=== PATIENT | female | born 1975 | race Asian ===

== ENCOUNTER 2024-07-16 05:24 | Observation (INO) | payer BC ==
[2024-07-09 12:20] LABS: BASOPHILS % 0.5 % (0.0-1.0); EOSINOPHILS # (AUTO) 0.1 (0.0-0.4); HEMATOCRIT 47.5 % (34.2-44.1); HEMOGLOBIN 15.4 g/dL (12.0-16.0); LYMPHOCYTES # (AUTO) 1.6 (1.0-3.2); LYMPHOCYTES % 28.5 % (18.0-39.1); MEAN CORPUSCULAR HEMOGLOBIN 29.6 pg (28-32); MEAN CORPUSCULAR HGB CONC 32.4 g/dL (31-35); MEAN CORPUSCULAR VOLUME 91.3 fL (81-99); MONOCYTES # (AUTO) 0.4 (0.2-0.8); MONOCYTES % 7.8 % (4.4-11.3); NEUTROPHILS # (AUTO) 3.4 (2.1-6.9); PLATELET COUNT 234 x10e3/uL (140-360); RED CELL DISTRIBUTION WIDTH 11.9 % (11.7-14.4); WHITE BLOOD COUNT 5.54 x10e3/uL (4.8-10.8)
[2024-07-09 12:42] LABS: ALBUMIN 4.3 g/dL (3.5-5.0); ALBUMIN/GLOBULIN RATIO 1.2 (0.8-2.0); ANION GAP 20.1 mmol/L (8-16); BILIRUBIN,TOTAL 0.7 mg/dL (0.2-1.2); CALCIUM 9.9 mg/dL (8.4-10.2); CREATININE, SERUM 0.82 mg/dL (0.57-1.11); POTASSIUM 4.1 mmol/L (3.5-5.1)
[~2024-07-16] VITALS: Ht 160 cm; Wt 67.1 kg
[2024-07-16] MEDS: LACTATED RINGER'S 1,000 ML ONE (05:39)
[2024-07-16] MEDS ORDERED: HYDROMORPHONE 1MG/1ML INJ ONE (07:07)
[2024-07-16] MEDS ORDERED: BUPIVACAINE HCL 0.5% INJ 30 ML VIAL INJ ONE (10:02)
[2024-07-16] MEDS ORDERED: HYDROCODON-ACE1 EA12 PO (10:34)
[2024-07-16] MEDS ORDERED: ONDANSETRON HCL 4 MG ORAL DISINTEGRATING TAB SL PRN (10:45)
[2024-07-16] MEDS ORDERED: ACETAMINOPHEN 325 MG TAB PO PRN (10:45)
[2024-07-16 12:50] VITALS: BP_SYST 84; PULSE 89; RESP 18; TEMP 97.7; O2SAT 94
[2024-07-16] MEDS: HYDROCODONE/APAP 7.5MG-325MG 1 EA TAB PO PRN (12:58)
[2024-07-16 13:08] VITALS: BP 149/86; PULSE 86; RESP 16; TEMP 97.4; O2SAT 97
[2024-07-16] MEDS: LACTATED RINGER'S 1,000 ML IV SCH (14:17)
[2024-07-16 16:00] VITALS: BP 123/82; PULSE 106; RESP 18; TEMP 98.4; O2SAT 95
[2024-07-16] MEDS: DOCUSATE SODIUM 100 MG CAP PO SCH (16:31)
[2024-07-16] MEDS: HYDROMORPHONE 1MG/1ML INJ IV PRN (18:16)
[2024-07-16 20:00] VITALS: BP 108/79; PULSE 96; RESP 18; TEMP 97.5; O2SAT 95
[2024-07-17] VITALS: BP 113/77; PULSE 89; RESP 16; TEMP 99; O2SAT 99
[2024-07-17 05:02] VITALS: BP 114/73; PULSE 88; RESP 18; TEMP 97.9; O2SAT 99
[2024-07-17 08:09] VITALS: BP 112/73; PULSE 92; RESP 16; TEMP 97.8; O2SAT 96
[2024-07-17] MEDS: ENOXAPARIN SOD INJ 40 MG/0.4 ML SYR SC SCH (10:23)
[2024-07-17 10:35] VITALS: BP 112/73; PULSE 92; RESP 16; TEMP 97.8; O2SAT 96
[2024-07-17 12:14] VITALS: BP 120/78; PULSE 94; RESP 17; TEMP 98.2; O2SAT 98
[2024-07-17] MEDS ORDERED: BACTRIM DS TAB1 EACH PO (13:56)
== END 2024-07-17 14:55 | disposition home or self-care (01) ==
LOC: OR 05:24 → PACU V 10:34 → MED/SURG 12:41
PROVIDERS: ADMIT Plastic Surgery; ATTEND Plastic Surgery
DX: C50.911 Malignant neoplasm of unspecified site of right female breast (principal); Z01.810 Encounter for preprocedural cardiovascular examination; Z01.812 Encounter for preprocedural laboratory examination
CPT/HCPCS: 15777; 19303; 19340; 36415 ×2; 80053; 84702; 85025; 88309; 88342; 93005; 99070; C1789; G0378 ×2; J0690 ×2; J1171 ×2; J1650; J7121 ×2